=== PATIENT | male | born 1965 | race Caucasian/White ===

== ENCOUNTER → 2019-02-15 | Outpatient (CLI) | payer OTHER ==
[~2019-02-15] MED LIST: ASPI81CH PO; ATOR20 PO; CALC.25 PO; CARV25 PO; DEXL60CA3 PO; ENAL20 PO; FURO20 PO; HYDACE10 PO; MAGOXI400 PO; MYCOPHENOLATE PO; Nephro-Vite RX1 EA PO; OMEPRAZOLE MAGN20 MG PO; SEVEC800 PO; TACR1 PO; VANC250 IV
[2019-02-15 18:34] LABS: Microalb/Creat Ratio UR, Rand 48.182 mg/g (0.000-30.000); Microalbumin, Random Urine 58.3 mg/L (0.000-20.000)
== END | disposition home or self-care (01) ==
LOC: LAB 09:30 → LAB SHORT 09:30
PROVIDERS: Nurse Practitioner Family
DX: E11.42 Type 2 diabetes mellitus with diabetic polyneuropathy (principal)
CPT/HCPCS: 82043; 82570